=== PATIENT | female | born 1980 | race Caucasian/White ===

== ENCOUNTER → 2019-08-18 | Outpatient (CLI) | payer OTHER ==
[~2019-08-18] MED LIST: ALPRAZOLAM XR3 MG PO; AMBIEN5 MG PO; ARTIFICIAL TEAR15 M4 OPHTHALMIC; BENADRYL ALLERG25 MG PO; CORRECTOL5 M1 PO; CYMBALTA30 MG PO; FOLIC ACID1 MG PO; GRALISE300 MG PO; HYDROCODON-ACE1 EAC7 PO; LIDOCAINE35.44 GM TOP; MELATONIN5 M1 PO; MELATONIN5 M4 PO; MILK OF MA2400 MG/11 PO; MOBIC7.5 MG PO; MYLANTA MAXIMU355 ML PO; NEURONTIN100 MG PO; NEURONTIN600 MG PO; POTASSIUM20 PO; PREDNISONE 10 M10 M1 PO; PROMS25 WY PO; PROTONIX40 M1 PO; VOLTAREN GEL 1100 G1 TOP
[2019-08-18 13:00] LABS: CSF GLUCOSE 63 mg/dl (40-70); CSF PROTEIN 38.9 mg/dl (15-45)
[2019-08-18 13:11] VITALS: BP 135/96
[2019-08-18 13:20] VITALS: BP 126/92
[2019-08-18 13:30] LABS: CSF CLARITY CLEAR; CSF COLOR COLORLESS; CSF RBC 0 /mm3; CSF WBC 0 /mm3 (0-10); VOLUME 12.5 ml
--- NOTE | 2019-08-19 16:06 | PATH ---
[address] [address] PATHOLOGY RPT PROCEDURE Name: DAVID PARIS Room: [facility] [employer]#: [id number] Admission: 08/18/19 Date of : 80 Discharge: Report #: [id number] Path Case #: [id number] Note LCA Accession Number: [id number] TESTS RESULT FLAG UNITS REF RANGE LAB Clinician Provided Cytology Information No. of containers..01 Other (Miscellaneous) Source: CSF DIAGNOSIS: 02 CSF NEGATIVE FOR MALIGNANT CELLS. PAUCICELLULAR SPECIMEN WITH FEW LYMPHOCYTES AND RARE SUGGESTION OF CHOROIDAL/EPENDYMAL CELL. Signed out by: 02 Primitivo Eli MD, Pathologist NPI- [id number] Performed by: 01 Elena Trejo, Sterile Processing Manager ([facility]) Gross description: 01 2.5 ML, CLEAR, COLORLESS /LCS 11/16/1840 0000 Local FLAG LEGEND: L-Low Normal,H-High Normal,LL-Alert Low,HH-Alert High <-Panic Low,>-Panic High,A-Abnormal,AA-Critical Abnormal Performed at: [address] [place] [address] Audi Yeh MD, [address] [place] [address] [place] [address] Primitivo Eli MD, Specimen Comment: A courtesy copy of this report has been sent to Specimen Comment: [phone]. Specimen Comment: Report sent to Performed at: [address], [place], [place] [id number] MD Audi Yeh MD Phone: [phone]
== END | disposition home or self-care (01) ==
LOC: M.LAB 08-12 11:07 → M.RAD 09:38 → M.LAB 10:00
PROVIDERS: Psychiatry & Neurology Neurology
DX: I49.5 Sick sinus syndrome (principal)

== ENCOUNTER 2019-09-03 12:43 | Inpatient (IN) | payer OTHER ==
[~2019-09-03] VITALS: Ht 167.6 cm; Wt 65.8 kg
--- NOTE | ~2019-09-03 | PROC ---
[address] [address] PROCEDURE REPORT Name: DAVID PARIS Room: [address] IN ..#: [id number] Admission: 09/03/19 Attend Phys: Tenzin Khan MD Discharge: 09/14/19 Date of : 80 Report #: [id number] THIS REPORT FOR: //name// For GI report, please see the Provation report in Perceptive 7 content. By: 0644Medical Records Staff AMOR /VIDAL
--- NOTE | ~2019-09-03 | CON ---
[address] [address] CONSULTATION Name: SHAMAR PARISCHUY Bob Room: [address] IN .R.#: [id number] Admission: 09/03/19 Attend Phys: Tenzin Khan MD Discharge: Date of : 80 Report #: [id number] THIS REPORT FOR: //name// CC: DEL physician/PCP Tenzin Khan DATE OF SERVICE: 09/04/2019 REASON FOR CONSULTATION: Anemia. HISTORY OF PRESENT ILLNESS: This is a 39-year-old female who was diagnosed with Guillain-Sardis 2 weeks ago. The patient still does not know what the cause of her Guillain-Sardis was. She has received 5 courses of IVIG so far. She presents with weakness and anemia. She has hemoglobin of 7.3 on presentation, which dropped to 6 after hydration. The patient denies any hematemesis, melena, hematochezia, nausea, vomiting, dysphagia, odynophagia or abdominal pain. 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 ALLERGIES AND MEDICATIONS: Please refer to MAR. SOCIAL HISTORY: The patient denies tobaccoism, may have few alcoholic beverage per day. FAMILY HISTORY: Noncontributory. PHYSICAL EXAMINATION: VITAL SIGNS: Reveals blood pressure of 139/93, pulse of 109, temperature is 98 and respiration is 19. LUNGS: Clear to auscultation bilaterally. CARDIOVASCULAR: Regular rate, but tachycardia. ABDOMEN: Soft, nontender, nondistended. Bowel sounds are positive. LABORATORY DATA: Labs reveal sodium of 135, potassium 2.6, BUN is 9, creatinine 0.6, glucose 119, AST is 36, ALT of 21 with alkaline phosphatase of 6.5, magnesium is 1.5, total bilirubin is 2 with direct being 0.6. Lipase is 603. Serum iron is 272 with saturation of 101. Ferritin is 1545. WBC is 15.1 with hemoglobin of 8 and platelet of 352. Viral hepatitis serology was obtained, which was negative. IMAGING: A CT of abdomen and pelvis was obtained, which showed evidence of femoral head flattening or volume loss, which may be secondary to avascular necrosis. There is also wall thickening in the distal stomach near the pylorus with some adjacent mild stranding suggestive of [place] [address] CONSULTATION Name: DAVID PARIS Paulino Room: [address] IN [facility]#: [id number] Admission: 09/03/19 Attend Phys: Tenzin Khan MD Discharge: Date of : 80 Report #: [id number] ASSESSMENT AND PLAN: The patient's anemia, most probably is due to autoimmune hemolytic anemia as the patient with Guillain-Sardis in setting of IVIG treatment may develop hemolytic autoimmune anemia. We will consult Hematology to further investigate this. CT suggestive of some evidence of gastritis in the distal stomach. I will put her on double dose of PPI. Once she is more stable, we will consider performing upper scope. By: 1027 [id number] Nolasco MD /nt
[2019-09-03 12:45] VITALS: BP 134/76
[2019-09-03] MEDS ORDERED: NEURONTIN100 MG PO (12:54)
[2019-09-03] MEDS ORDERED: MOBIC7.5 MG PO (12:54)
[2019-09-03] MEDS ORDERED: BENADRYL ALLERG25 MG PO (12:55)
[2019-09-03 13:20] LABS: HEMATOCRIT 21.1 % (37.0-47.0); HEMOGLOBIN 7.3 gm/dL (12.0-15.0); MCH 35.5 pg (26.0-34.0); MCHC 34.8 g/dL (28.0-37.0); MCV 101.9 fL (80.0-100.0); MPV 7.3 fl. (7.2-11.1); NUCLEATED RBCS 2 /100WBC; PLATELET COUNT* 473 thou/uL (150-400); RBC 2.07 mil/uL (4.20-5.00); RDW-CV 16.5 % (10.5-14.5); WBC 22.3 thou/uL (4.0-11.0)
[2019-09-03 13:37] LABS: CALCIUM 8.7 mg/dL (8.5-10.1); CREATININE 0.8 mg/dL (0.6-1.3)
[2019-09-03 13:38] LABS: MAGNESIUM 1.8 mg/dL (1.8-2.4)
[2019-09-03 13:39] LABS: POTASSIUM 2.3 mmol/L (3.5-5.1)
[2019-09-03 13:42] LABS: ALBUMIN 2.3 g/dL (3.4-5.0); TOTAL BILIRUBIN 2.3 mg/dL (<0.1-1.0); TOTAL PROTEIN 9.4 g/dL (6.4-8.2)
[2019-09-03 13:51] LABS: ABSOLUTE LYMPHOCYTES 2.2 thou/uL (0.8-5.3); ABSOLUTE MONOCYTES 1.3 thou/uL (0.0-1.2); ABSOLUTE NEUTROPHILS 18.7 thou/uL (1.6-8.1); PLATELET ESTIMATE INCREASED
[2019-09-03 13:52] LABS: POLYCHROMASIA 2+
[2019-09-03 13:53] LABS: ANISOCYTOSIS 2+; MACROCYTES 1+; MICROCYTES 1+
[2019-09-03 14:04] LABS: BE 8.5 mmol/L (-2 to +3); PCO2 37.3 mmHg (35.0-45.0); PO2 72.1 mmHg (75.0-100.0); pH 7.548 (7.340-7.450)
[2019-09-03 14:17] LABS: PROTIME 10.3 Seconds (9.20-11.50)
[2019-09-03 14:46] LABS: URINE BILIRUBIN NEGATIVE (Negative); URINE BLOOD TRACE (Negative); URINE COLOR YELLOW; URINE GLUCOSE-RANDOM NEGATIVE (Negative); URINE KETONES NEGATIVE (Negative); URINE LEUKOCYTES-REFLEX NEGATIVE (Negative); URINE NITRITE-REFLEX POSITIVE (Negative); URINE PROTEIN NEGATIVE (Negative); URINE SPECIFIC GRAVITY <= 1.005 (1.005-1.030)
[2019-09-03 14:47] LABS: URINE CLARITY HAZY
[2019-09-03 14:54] LABS: AMP/METHAMP Negative (Negative); BARBITURATES Negative (Negative); BENZODIAZEPINES Negative (Negative); COCAINE Negative (Negative); METHADONE Negative (Negative); OPIATES Negative (Negative); PCP Negative (Negative); THC Negative (Negative)
[2019-09-03 14:55] LABS: SQUAMOUS 0-3 Few /LPF (0-3)
--- NOTE | 2019-09-03 14:55 | NUR ---
IV INSERTED IN LEFT AC, IV FLUIDS STARTED. PT DEVELOPED RAISED AREA SIZE OF GOFTBALL DIRECTLY ABOVE IV SITE. IV DC'D, COBAN APPLIED WITH WARM COMPRESSES. YARY CHACON TO ATTEMPT IV INSERTION.
[2019-09-03 14:56] LABS: BACTERIA-REFLEX >30 Many /HPF (None Seen); CASTS None Seen /LPF (None Seen); CRYSTALS None Seen /LPF (None Seen); URINE RBC 0-2 Rare /HPF (0-2); URINE WBC-REFLEX 6-15 Few /HPF (0-5)
--- NOTE | 2019-09-03 15:38 | EKG ---
[place] [address] ELECTROCARDIOGRAM REPORT Name: RAINADAVID Room: [facility]#: [id number] Admission: 09/03/19 Attend Phys: Discharge: Date of : 80 Report #: [id number] THIS REPORT FOR: //name// [facility] ED Test Date: 2019-09-03 Test Time: 12:54:41 Pat Name: DAVID PARIS Department: Room: Gender: F Director Search Marketing Strategies: : 1980 Requested By: Yulisa Pruett Order Number: [id number] MD: Dustin Calvillo Measurements Intervals [place] Rate: 130 P: 64 [place]: 130 QRS: 54 QRSD: 78 T: -58 QT: 323 QTc: 475 Interpretive Statements Sinus tachycardia Borderline T abnormalities, inferior leads No previous ECG available for comparison Electronically Signed On 09-03-2019 15:37:56 CDT by Dustin Calvillo [email or web address] <ELECTRONICALLY SIGNED> By: Imani Calvillo MD, [facility] 09/03/19 1537 [id number] Imani Calvillo MD, FACC /EPI
--- NOTE | 2019-09-03 17:03 | NUR ---
DR. CHICAS IN ROOM TALKING TO PT ABOUT RESULTS AND NEED FOR ADMISSION. PT AGREEABLE AND STATES UNDERSTANDING.
--- NOTE | 2019-09-03 18:58 | NUR ---
REPORT GIVEN TO YARY MURPHY. YARY MURPHY TO ASSUME PT CARE AT THIS TIME.
[2019-09-03 20:45] VITALS: BP 132/86
--- NOTE | 2019-09-03 21:24 | NUR ---
CALL RECEIVED FROM DR DIAZ REGARDING CONSULT, LAB RESULTS AND PLAN OF CARE CONVEYED. DR DIAZ STATES TO FOLLOW ER ORDER OF H/H Q4HR X4 POST TRANSFUSION AND HE WILL SEE PT IN AM TO DETERMINE IF EGD IS APPROPRIATE IN LIGHT OF PTS GUILLIAN BARRE SYNDROME.
[2019-09-03 22:13] LABS: DIRECT BILIRUBIN 0.6 mg/dL (<0.1-0.3); TOTAL BILIRUBIN 1.9 mg/dL (<0.1-1.0)
[2019-09-03 22:40] VITALS: BP 135/90
[2019-09-03 23:00] VITALS: BP 136/83
[2019-09-03 23:20] VITALS: BP 136/89
[2019-09-03 23:49] LABS: URINE POTASSIUM-RANDOM 9.9 mmol/L
[2019-09-04] VITALS (17 sets, daily range): BP systolic 104–147; BP diastolic 63–95
[2019-09-04 04:58] LABS: HEMATOCRIT 23.1 % (37.0-47.0); MCHC 34.7 g/dL (28.0-37.0); MPV 7.3 fl. (7.2-11.1); RBC 2.43 mil/uL (4.20-5.00); RDW-CV 17.3 % (10.5-14.5); WBC 15.1 thou/uL (4.0-11.0)
--- NOTE | 2019-09-04 05:16 | NUR ---
RECIEVED FROM ER AT 2030H, HOOKED TO BLOCK TRIMMER AND WITH TACHYCARDIA NOTED.NO HEMATEMESIS NOR BLOODY STOOL THE WHOLE NIGHT.PRN PAIN MED GIVEN.PT REQUESTED FOR CONFIDENTIAL CHART AND AND RESULTS,PROCEDURE,DIAGNOSIS ETC. ONLY BE RELAYED TO HER.ATTENDING PHYSICIAN AWARE.CONTINUE MONITORING AND TOWARD GOALS.
[2019-09-04 05:18] LABS: CALCIUM 7.3 mg/dL (8.5-10.1); CREATININE 0.6 mg/dL (0.6-1.3); MAGNESIUM 1.5 mg/dL (1.8-2.4); TOTAL PROTEIN 7.9 g/dL (6.4-8.2)
[2019-09-04 05:23] LABS: POTASSIUM 2.6 mmol/L (3.5-5.1)
[2019-09-04 06:06] LABS: HEPATITIS B SURFACE AG Negative (Negative)
--- NOTE | 2019-09-04 15:18 | NUR ---
PT C/O OF LOWER LEG PRESSURE. PT STATES LEGS "FEEL LIKE SAND BAGS" AND SHARP PAIN IN TOES WITH SENSATION OF "LUISA BEING PULLED OUT". PT RATED PAIN 8/10. PT REPORTED FENTANLY IS NOT GIVING RELIEF. PT STATES PRIOR TO THIS ADMISSION SHE HAS HAD FENTANLY AND HAD RELEIF WITH THIS MEDICAITON. NOTIFED AND ASKED FOR ORAL MEDICATION. RECEIVED ORDER FOR HYDROCODONE. UPON DISCUSSING PAIN MANAGMENT AND NEW ORDER, PT STATES HYDROCODONE MAKE HER HAVE "VIOLENT" EMESIS. PT REPORTED PERCOCET DOES NOT "UPSET HER STOMACH". NOTIFIED AND ORDERS DC'D FOR HYDROCODONE AND START PRN PERCOCET. PRIOR TO 50MCG OF FENTNAYL PT RATES PAIN 8/10. AFTER ADMNINSTRATION OF MED, PT RATED PAIN 7/10. PRIOR TO PO PERCOCET PAIN RATED 8/10. AT REASSESSMENT PAIN RATED 8/1O. PT REPORTS TOLERABLE PAIN LEVEL 4/10. REGULAR DIET ORDERED BY GI AND OKAYED BY INTERNAL MEDICINE. PT HAS POOR APPETITE. NO NAUSEA OR EMESIS. PT ATE 15% OF LUNCH. POTASSIUM 2.6 AND BEING REPLACED PER PROTOCOL.
[2019-09-05] VITALS (13 sets, daily range): BP systolic 107–130; BP diastolic 59–83
--- NOTE | 2019-09-05 01:04 | NUR ---
LAB NOTIFIED THIS RN AT APPROX 2130 THAT THE PATIENT WAS "TIMOTHY +". BLOOD WILL NEED TO BE SENT OUT TO BE ANALYZED TO DETERMINE THE CAUSE OF THE POSITIVE READ. THERE WILL BE A PATHOLOGIST TO RUN TESTING AT THE CENTER THAT THIS [facility] USES AT 1500 ON 02/03/19. IF BLOOD IS URGENTLY NEEDED, IT WILL BE A $300 CHARGE FOR THE HOSPITAL TO CALL THIS SPECIALIST IN.
--- NOTE | 2019-09-05 05:11 | NUR ---
ASSUMED PATIENT CARE AT 1900. PATIENT ALERT AND ORIENTED TIMES FOUR. MINOR COMPLAINTS OF PAIN NOTED, CONTROLLED WITH ORAL PAIN MEDICATION. IV PATENT. VSS. REFUSES TO TRY TO GO TO THE BSC. SEE NOTE ABOUT BLOOD TESTING. SEE EMAR FOR MEDICATION ADMINISTRATION. SHUTTLE INSPECTOR COMPLETED DOCUMENTED.
[2019-09-05 07:17] LABS: MAGNESIUM 1.5 mg/dL (1.8-2.4); POTASSIUM 3.2 mmol/L (3.5-5.1)
[2019-09-05 14:19] LABS: HEMATOCRIT 22.3 % (37.0-47.0); HEMOGLOBIN 7.7 gm/dL (12.0-15.0)
--- NOTE | 2019-09-05 15:48 | CON ---
[address] [address] CONSULTATION Name: RAINADAVID B Room: [address] IN M.R.#: [id number] Admission: 09/03/19 Attend Phys: Tenzin Khan MD Discharge: Date of : 80 Report #: [id number] THIS REPORT FOR: //name// CC: [facility] physician/PCP Tenzin Khan DATE OF SERVICE: 09/04/2019 NEW PATIENT CONSULTATIVE SUMMARY PRIMARY CARE PHYSICIAN: Unknown. REASON FOR CONSULTATION: Possible autoimmune hemolytic anemia. 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 She was seen by Neurology and was treated with IVIG for 5 days. She has not had any significant improvement of her symptoms and started having progressive fatigue and tiredness as well and presented to the hospital 2 days ago. Blood work upon admission showed hemoglobin decreased to 7.3 with otherwise normal platelet count of 352 and elevated WBC count of 22.3, which decreased down to 15.1 today. The patient did have imaging in the form of CT scan of the chest, abdomen and pelvis. CT scan of the chest showed no evidence of pulmonary thromboembolic disease or aortic dissection with no acute cardiopulmonary abnormality. The patient did have fatty liver with hepatomegaly suspected. CT abdomen showed wall thickening of the distal stomach near the pylorus and flattening or volume loss of right femoral head suggesting avascular necrosis. The patient was seen by Gastroenterology by Dr. Nolasco. The patient was found to have total bilirubin level elevated at 2.3 with low level of conjugated bilirubin indicating absence of any obstructive process. AST and ALT were otherwise not elevated and alkaline phosphatase is also normal at 65. The patient had iron profile, which showed iron level elevated at 272 with iron saturation of 100. Ferritin was markedly elevated at 1545. LDH was also found to be significantly elevated at 617. Due to these findings, Hematology consultation was obtained. The patient did have hepatitis C antibody negative at 0.3. She did require 1 unit of PRBCs after hemoglobin fell to 6.0. Subsequent hemoglobin was found to be 8 g/dL. The patient does give history of being on meloxicam, gabapentin and amitriptyline for her neuropathy. She does not give any history of any skin changes including any purpura, ecchymosis or any cyanosis. She does not complain of any headaches, dizziness, nausea, vomiting, constipation, diarrhea, chest pain or palpitations. No recent antibiotic or other drug use except mentioned above recently. PAST MEDICAL HISTORY: [place] [address] CONSULTATION Name: DAVID PARIS Room: [address] IN M.R.#: [id number] Admission: 09/03/19 Attend Phys: Tenzin Khan MD Discharge: Date of : 80 Report #: [id number] 1. Anemia, possibly autoimmune. 2. 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 3. Bilateral avascular necrosis of hips. 4. Gastritis. 5. Weakness. PAST SURGICAL HISTORY: None significant. PERSONAL HISTORY: Denies any history of tobacco use and off and on alcohol use only. No illicit drug use history. FAMILY HISTORY: No significant family history of cancers or other hematologic disorders. ALLERGIES: 1. RIFAMPIN. 2. TRAMADOL. CURRENT MEDICATIONS: 1. Protonix 40 mg p.o. b.i.d. 2. Percocet 5/325 mg 1 tablet every 3 hours as needed. 3. Zosyn 3.375 grams q. 8 hours. 4. Promethazine 12.5 mg p.o. q. 4 hours as needed. 5. Potassium as directed. 6. Zofran 4 mg IV as needed. 7. Melatonin 10 mg p.o. at bedtime as needed. 8. Magnesium oxide 400 mg p.o. q.i.d. 9. Gabapentin 300 mg p.o. t.i.d. 10. Diphenhydramine 25 mg p.o. q. 6 hours as needed. 11. Mylanta p.o. q. 4 hours as needed. 12. Fentanyl 50 mcg IV push q. 4 hours as needed. REVIEW OF SYSTEMS: A 13-point review of systems were obtained, which were negative for any findings except for those discussed in HPI. PHYSICAL EXAMINATION: VITAL SIGNS: Temperature today was 36.7 degrees centigrade, pulse was 121 beats per minute, respiratory rate was 14 breaths per minute, blood pressure 108/63 mmHg with pulse ox 94% on room air. GENERAL: Awake, alert, oriented x 3, no apparent distress. HEENT: EOMI/PERRL. LYMPHATICS: No lymphadenopathy in the neck or supraclavicular areas. CHEST: Clear bilaterally with no added sounds. CARDIOVASCULAR: Regular rate and rhythm without any murmurs. ABDOMEN: Soft, [place] [address] CONSULTATION Name: DAVID PARIS Room: [address]#: [id number] Admission: 09/03/19 Attend Phys: Tenzin Khan MD Discharge: Date of : 80 Report #: [id number] MUSCULOSKELETAL: No significant arthropathy, moving all extremities symmetrically. NEUROLOGIC: The patient does complain of weakness in the legs and numbness and tingling in the feet and hands. INTEGUMENTARY: No evidence of rash or other skin changes. 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 The patient also does have evidence of autoimmune hemolytic anemia on lab findings given the drop in hemoglobin along with elevated LDH and unconjugated bilirubin. Haptoglobin level is pending. I will add direct Courtney test along with reticulocyte count tonight as well. Her medication taken recently over the last few months are not commonly implicated with autoimmune hemolytic anemia. The patient may need treatment with steroids if she does have high reticulocyte count and positive Courtney test. I will also request peripheral smear review by pathologist. In the event that patient is planned to be treated with plasmapheresis for her neuropathy, it will also help with autoimmune hemolytic anemia if confirmed. In the meanwhile, we recommend transfusing patient to keep her hemoglobin above 7. Thank you for allowing us to participate in the care of this pleasant patient. <ELECTRONICALLY SIGNED> By: Jonny Nickerson MD 09/05/19 1548 1720 [id number] Elva Nickerson MD /nt
[2019-09-05 18:22] LABS: MAGNESIUM 1.6 mg/dL (1.8-2.4); POTASSIUM 4.1 mmol/L (3.5-5.1)
--- NOTE | 2019-09-05 19:18 | NUR ---
PT TRANSFERRED FROM ICU AT 1800 REPORT RECEIVED FROM NURSE. PT IS AOX4. VS TAKEN. SEE CHART. SINUS TACHY HEART RATE 130S 140S EVEN WHEN PT IS LYING IN BED. DR NOTIFIED. WILL CARDIAC SCRIPT IN CHART. IV FLUID INFUSING ORDERED. PAIN MEDICINE GIVEN. PT ATE DINER. CALL LIGHT AT REACH
--- NOTE | 2019-09-05 19:35 | NUR ---
PT A&O X4. ST ON THE MONITOR. O2 SATS >92% IN RA. VOIDING PER BED CASTRO. TOLERATING DIET. ELECTROLYTE REPLACED PER PROTOCOL. HB MONITORED. PERCUCET GIVEN ONCE FOR PAIN. REPORT GIVEN TO RANDY RIOS.
[2019-09-05 21:05] LABS: IgA 211 mg/dL (87-352); IgG 3315 mg/dL (700-1600); IgM 125 mg/dL (26-217)
[2019-09-05 22:04] LABS: HEMATOCRIT 21.8 % (37.0-47.0); HEMOGLOBIN 7.5 gm/dL (12.0-15.0)
[2019-09-05 22:07] LABS: HEMOGLOBIN 7.4 g/dL (11.1-15.9)
[2019-09-05 22:07] LABS: GLYCOHEMOGLOBIN (HGB A1C) 4.8 % (4.8-5.6)
[2019-09-06] VITALS: BP 139/62; BP 139/88
[2019-09-06 04:00] VITALS: BP 139/85
--- NOTE | 2019-09-06 04:19 | NUR ---
PATIENT HAS SLEPT WELL THROUGHOUT MOST OF THE NIGHT. VSS ON RA. MEDICATIONS GIVEN ORDERED AND CHARTED. PATIENT REQUESTED TO USE BEDPAN D/T HER BEING SO WEAK AT THIS TIME. PATIENT REMAINS SINUS TACH ON TELE MONITOR. NEW IV IN RIGHT FOREARM-1/2 NS @ 80ML/HR. IV IN RIGHT AC-SL. PATIENT INSTRUCTED TO USE CALL LIGHT WHEN NEEDING ASSISTANCE. HOURLY ROUNDS MADE. WILL CONTINUE WITH PLAN OF CARE AND NURSING TO MONITOR.
[2019-09-06 05:07] LABS: ABSOLUTE BASOPHILS 0.1 thou/uL (0.0-0.2); ABSOLUTE EOSINOPHILS 0.2 thou/uL (0.0-0.7); ABSOLUTE LYMPHOCYTES 2.3 thou/uL (0.8-5.3); ABSOLUTE MONOCYTES 1.5 thou/uL (0.0-1.2); ABSOLUTE NEUTROPHILS 10.5 thou/uL (1.6-8.1); BASOPHILS 0.8 %; EOSINOPHILS 1.5 %; HEMATOCRIT 21.5 % (37.0-47.0); HEMOGLOBIN 7.2 gm/dL (12.0-15.0); MCHC 33.5 g/dL (28.0-37.0); MCV 95.4 fL (80.0-100.0); MONOCYTES 10.3 %; MPV 7.1 fl. (7.2-11.1); NUCLEATED RBCS 3 /100WBC; PLATELET COUNT* 355 thou/uL (150-400); POLYS 71.4 %; RBC 2.26 mil/uL (4.20-5.00); RDW-CV 18.3 % (10.5-14.5); WBC 14.6 thou/uL (4.0-11.0)
[2019-09-06 05:23] LABS: ALBUMIN 2.2 g/dL (3.4-5.0); CALCIUM 8.4 mg/dL (8.5-10.1); CREATININE 0.5 mg/dL (0.6-1.3); MAGNESIUM 1.6 mg/dL (1.8-2.4); TOTAL BILIRUBIN 0.9 mg/dL (<0.1-1.0); TOTAL PROTEIN 7.6 g/dL (6.4-8.2)
[2019-09-06 08:00] VITALS: BP 136/93
--- NOTE | 2019-09-06 11:27 | NUR ---
ATTEMPTED TO MEET WITH PT, WORKING WITH THERAPY
[2019-09-06 12:00] VITALS: BP 133/85
[2019-09-06 16:00] VITALS: BP 137/88
--- NOTE | 2019-09-06 19:10 | NUR ---
ASSUMED PT CARE REPORT RECEIVED FROM NURSE.PT IS AOX4. ON RA. IV FLUID INFUSING. COMPLAINS OF PAIN. PERCOCET GIVEN. PT WORKED WITH OT AND PHYSICAL THERAPIST. MAG REPLACEMENT. MAG AND CBS ORDERED FOR TOMORROW. ORDER TO INCREASED GABAPENTIN DOSE STARTING TONIGHT. SEE EMAR AND ORDER HX.
[2019-09-06 20:29] VITALS: BP 135/87
[2019-09-07] VITALS: BP 142/84
[2019-09-07 04:00] VITALS: BP 136/93
[2019-09-07 05:35] LABS: HEMATOCRIT 22.6 % (37.0-47.0); HEMOGLOBIN 7.5 gm/dL (12.0-15.0); MCH 31.7 pg (26.0-34.0); MCHC 33.1 g/dL (28.0-37.0); MCV 95.7 fL (80.0-100.0); MPV 7.3 fl. (7.2-11.1); NUCLEATED RBCS 4 /100WBC; PLATELET COUNT* 429 thou/uL (150-400); RBC 2.36 mil/uL (4.20-5.00); RDW-CV 19.7 % (10.5-14.5); WBC 20.8 thou/uL (4.0-11.0)
[2019-09-07 06:10] LABS: ALBUMIN 2.4 g/dL (3.4-5.0); CALCIUM 8.8 mg/dL (8.5-10.1); CREATININE 0.6 mg/dL (0.6-1.3); MAGNESIUM 1.9 mg/dL (1.8-2.4); PHOSPHORUS* 2.8 mg/dL (2.5-4.9); TOTAL BILIRUBIN 0.9 mg/dL (<0.1-1.0)
[2019-09-07 06:24] LABS: ABSOLUTE LYMPHOCYTES 2.1 thou/uL (0.8-5.3); ABSOLUTE NEUTROPHILS 17.7 thou/uL (1.6-8.1); ANISOCYTOSIS 1+; ATYPICAL LYMPHS 1 %; METAMYELOCYTES 1 %; MYELOCYTES 1 %; PLATELET ESTIMATE ADEQUATE; POLYCHROMASIA 2+
[2019-09-07 06:47] VITALS: BP 146/102
--- NOTE | 2019-09-07 07:34 | NUR ---
ASSUMED CARE OF PT 09/06/19 AT APPROX 1930, PT REMAINED A&OX4 THROUGHOUT SHIFT, PT SINUS TACH, PAIN MEDS REQUESTED AND ADMINISTERED ORDERED, ASSESSMENTS AND HOURLY ROUNDINGS COMPLETED, FALL PRECAUTIONS IN PLACE, REPORT GIVEN TO DAY SHIFT 09/07/19 APPROX 0720.
[2019-09-07 07:45] VITALS: BP 144/97
[2019-09-07 10:45] VITALS: BP 122/87
--- NOTE | 2019-09-07 13:16 | NUR ---
MET WITH PT TO DISCUSS HOME SITUATION/DC PLANNING. PT LIVES WITH S/O PILLO BUT STATES HE WORKS 5-6 DAYS A WEEK. HER PARENTS LIVE CLOSEBY AND CAN CHECK ON HER BUT NOT STAY WITH HER. PT JUST FINISHED 5 DAYS OF IVIG INFUSION AT HOME BY [facility] . SHE STATED SHE BEGAN HAVING INCREASED DIFFICULTY GETTING AROUND IN HER HOME UNTIL SHE COULD NO LONGER GET FROM HER BED TO BATHROOM. STILL C/O OF SEVERE WEAKNESS AND INABILITY TO CARE FOR HERSELF. DR SIN IN AND ORDERED REHAB CONSULT. WILL FOLLOW
[2019-09-07 20:00] VITALS: BP 135/86
[2019-09-08] VITALS: BP 126/83
[2019-09-08 04:00] VITALS: BP 122/82
--- NOTE | 2019-09-08 05:14 | NUR ---
A&O X4, VSS, MAINTAINING O2 SATS ON RA. PT IS REFUSING TO AMBULATE THROUGH OUT SHIFT, REQUESTING A BEDPAN D/T WEAKNESS. EDUCATED AND ENCOURAGED PT TO AMBULATE TO COMMODE IF NOT TO THE BATHROOM. PT HAD C/O PAIN AT START OF SHIFT TREATED WITH PRN MEDICATION. PT CURRENTLY ASLEEP IN BED WITH CALL LIGHT WITHIN REACH.
[2019-09-08 05:18] LABS: ABSOLUTE BASOPHILS 0.1 thou/uL (0.0-0.2); ABSOLUTE LYMPHOCYTES 1.6 thou/uL (0.8-5.3); ABSOLUTE MONOCYTES 2.2 thou/uL (0.0-1.2); ABSOLUTE NEUTROPHILS 12.4 thou/uL (1.6-8.1); BASOPHILS 0.3 %; EOSINOPHILS 0.1 %; HEMATOCRIT 23.4 % (37.0-47.0); HEMOGLOBIN 7.7 gm/dL (12.0-15.0); LYMPHOCYTES 10.2 %; MCHC 32.8 g/dL (28.0-37.0); MCV 97.5 fL (80.0-100.0); MONOCYTES 13.3 %; MPV 7.5 fl. (7.2-11.1); NUCLEATED RBCS 2 /100WBC; PLATELET COUNT* 454 thou/uL (150-400); POLYS 76.1 %; RDW-CV 21.4 % (10.5-14.5); WBC 16.2 thou/uL (4.0-11.0)
[2019-09-08 07:30] VITALS: BP 141/93
[2019-09-08 10:10] LABS: GLOBULIN TOTAL 5.7 g/dL (2.2-3.9); M-SPIKE Not Observed g/dL (Not Observed)
[2019-09-08 11:10] VITALS: BP 129/80
[2019-09-08 16:00] VITALS: BP 112/77
--- NOTE | 2019-09-08 18:33 | NUR ---
PT HAS C/O NEUROPATHY THIS SHIFT. PT UNDERSTANDS SHE NEEDS TO REQUEST PAIN MEDICATIONS AND THEY WILL NOT BE BROUGHT UNLESS SHE REPORTS PAIN, NEUROPATHY PAIN MEDICATIONS ARE SCHEDULED. PT IS UP SBA, IV IS SL AT THIS TIME. PT TOLERATING RA AND DIET THIS SHIFT, ST ON THE MONITOR UP TO THE 160'S WITH AMBULATION-DR THOMPSON AWARE AND IS OKAY WITH THIS SHE IS DECONDITIONED. PT HAD A GRAM POSITIVE RODS URINE CULTURE NOTED. DR KAISER WAS UPDATED TO LAB CALL STATING THAT HER LP WAS NOT SENT TO THE LAB UNTIL 09/05 THEY STATED THEY DID NOT HAVE AN ORDER TO SEND AND THE LAB JUST RECIEVED THE LAB TODAY AND IT IS UP TO A 6 DAY TURN AROUND FOR RESULTS. HOURLY ROUNDING MAINTAINED, WILL CONTINUE TO MONITOR AND ASSESS
[2019-09-08 18:35] LABS: ABSOLUTE LYMPHOCYTES 0.6 thou/uL (0.8-5.3); ABSOLUTE MONOCYTES 0.8 thou/uL (0.0-1.2); ABSOLUTE NEUTROPHILS 13.3 thou/uL (1.6-8.1); EOSINOPHILS 0.1 %; HEMOGLOBIN 8.2 gm/dL (12.0-15.0); MCH 33.4 pg (26.0-34.0); MCHC 34.1 g/dL (28.0-37.0); MONOCYTES 5.3 %; MPV 7.6 fl. (7.2-11.1); NUCLEATED RBCS 2 /100WBC; PLATELET COUNT* 471 thou/uL (150-400); POLYS 90.6 %; RBC 2.45 mil/uL (4.20-5.00); WBC 14.7 thou/uL (4.0-11.0)
[2019-09-08 20:00] VITALS: BP 125/80
[2019-09-09] VITALS: BP 127/87
[2019-09-09 04:00] VITALS: BP 116/77
[2019-09-09 05:23] LABS: HEMATOCRIT 22.1 % (37.0-47.0); HEMOGLOBIN 7.5 gm/dL (12.0-15.0); MCHC 33.8 g/dL (28.0-37.0); MCV 97.4 fL (80.0-100.0); MPV 7.5 fl. (7.2-11.1); RBC 2.27 mil/uL (4.20-5.00); RDW-CV 21.4 % (10.5-14.5); WBC 12.1 thou/uL (4.0-11.0)
--- NOTE | 2019-09-09 05:27 | NUR ---
PT A&O X4, HAS HAS MUCH IMPROVEMENT WITH THIS SHIFT WITH TRANSFERING TO COMMODE. CONTIUNE TO ENCOURAGE AMBULATION. C/O PAIN NOTED AT START OF SHIFT, RELIEVED BY LIDOCAINE CREAM AND PRN MEDS. PT USING CALL LIGHT DIRECTED. PT CURRENTLY ASLEEP IN BED WITH CALL LIGHT WITH IN REACH.
[2019-09-09 05:35] LABS: CALCIUM 8.9 mg/dL (8.5-10.1); CREATININE 0.6 mg/dL (0.6-1.3); MAGNESIUM 2.2 mg/dL (1.8-2.4); POTASSIUM 3.2 mmol/L (3.5-5.1)
[2019-09-09 08:00] VITALS: BP 118/98
--- NOTE | 2019-09-09 12:55 | NUR ---
assumed pt care report received from nurse. pt is aox4, tracing sinus tachycardia on quality assurance monitor final. vss. complains of sensivity , numbness and pain in bilateral feet. lidocaine cream applied. rocephin given. pt kept npo for EGD, npo signed hanged. pt apparently had a granula bar and could not have EGD done at 1200. pt will have EGD done at 1400. no po medicine given for npo status. call light at reach. will continue to monitor pt
--- NOTE | 2019-09-09 13:30 | NUR ---
PT HAD BEEN CHANGED TO MEDSURG STATUS PER DR VIDES
[2019-09-09 13:35] VITALS: BP 136/89
--- NOTE | 2019-09-09 14:26 | NUR ---
MET WITH PT AND DISCUSSED WITH DR THOMPSON AND [facility]. PLAN IS FOR DC TOMORROW TO INPT REHAB IF ABLE TO OBTAIN INSURANCE AUTH. IS PENDING. DISCUSSED DC OPTIONS WITH PT AND HER 1ST CHOICE IS INPT REHAB. WILL FOLLOW
[2019-09-09 15:07] LABS: ANTI-RNP 0.5 AI (0.0-0.9)
[2019-09-09 20:00] VITALS: BP 116/74
[2019-09-10] VITALS: BP 137/87
[2019-09-10 04:44] LABS: HEMATOCRIT 26.1 % (37.0-47.0); HEMOGLOBIN 8.4 gm/dL (12.0-15.0); MCH 31.5 pg (26.0-34.0); MCHC 32.3 g/dL (28.0-37.0); MCV 97.7 fL (80.0-100.0); MPV 7.7 fl. (7.2-11.1); RBC 2.67 mil/uL (4.20-5.00); RDW-CV 21.4 % (10.5-14.5); WBC 12.6 thou/uL (4.0-11.0)
[2019-09-10 05:17] LABS: CALCIUM 9.1 mg/dL (8.5-10.1); CREATININE 0.6 mg/dL (0.6-1.3); MAGNESIUM 2.3 mg/dL (1.8-2.4)
[2019-09-10 05:18] LABS: POTASSIUM 5.2 mmol/L (3.5-5.1)
--- NOTE | 2019-09-10 05:35 | NUR ---
PT PROGRESSING TOWARDS GOALS, UP TO COMMODE AND BATHROOM THORUGHOUT SHIFT. NO LONGER USING BED CASTRO. PAIN LEVEL HAS SHOWN IMPROVEMENT WITH LESS PRN MEDICATION REQUIRED. CURRENTLY ASLEEP IN BED WITH CALL LIGHT WITHIN REACH. ALL NEEDS MET AT THIS TIME.
[2019-09-10 08:00] VITALS: BP 131/89
[2019-09-10] MEDS ORDERED: LIDOCAINE35.44 GM TOP (09:36)
[2019-09-10] MEDS ORDERED: VOLTAREN GEL 1100 G1 TOP (09:36)
[2019-09-10] MEDS ORDERED: FOLIC ACID1 MG PO (09:36)
[2019-09-10] MEDS ORDERED: PROTONIX40 M1 PO (09:36)
[2019-09-10] MEDS ORDERED: NEURONTIN600 MG PO (09:36)
[2019-09-10] MEDS ORDERED: HYDROCODON-ACE1 EAC7 PO (09:36)
[2019-09-10] MEDS ORDERED: MELATONIN5 M1 PO (09:36)
[2019-09-10] MEDS ORDERED: PREDNISONE 10 M10 M1 PO (09:39)
--- NOTE | 2019-09-10 14:00 | NUR ---
CONTINUE TO FOLLOW. PER [facility] PT'S INSURANCE DENIED REHAB STAY. DISCUSSED WITH DR THOMPSON, REC: SNF. PT WAS IN GI LAB. CALL TO INSURANCE TO CHECK ON IN NETWORK FACIILTY. LIST OBTAINED. CALLS PLACED TO CHECK OPTIONS. [facility] WILL CONSIDER PT. FLORIN CAME OUT TO TALK WITH PT. PT IS OPEN TO GOING TO SNF BUT WILL HAVE UPFRONT COST. SHE WAS AGREEABLE TO THAT. ANSWERED QUESTIONS. OTHER PREFERRED FACILITIES/[facility] DECL[facility] PT. AWAIT V FINAL DECISION.
[2019-09-10 15:17] VITALS: BP 131/89
[2019-09-10 15:40] VITALS: BP 137/90
[2019-09-10 15:41] VITALS: BP 129/93; BP 135/90
--- NOTE | 2019-09-10 19:50 | NUR ---
RECEIVED REPORT FROM JC PRINGLE. ASSUMED CARE OF PT AROUND 0730. PT A&O X4 ANXIOUS AT TIMES. VSS. M/S STATUS. HR TACHY AT TIMES. PT REPORTED PAIN IN HANDS, FEET AND LEGS THIS SHIFT THAT WAS MANAGED WITH PO AND TOPICAL PAIN MEDICATION WITH PARTIAL RELIEF. PT DISAPPOINTED THIS SHIFT DUE TO BEING DENIED ENTRANCE INTO INPATIENT REHAB. CURRENT PLAN IS FOR PT TO DC TO [facility] ON FRIDAY. ADMISSION LIAAZUL STANLEY CALLED THIS RN THIS EVENING AROUND 1750 SAYING THAT INSURANCE AUTHORIZATION FROM [facility] HAD NOT YET BEEN RECEIVED AND THAT A CALL FROM [facility] WOULD MOST LIKELY NOT BE RECEIVED UNTIL FRIDAY. PT AND CM NOTFIED. PT HAPPY TO STAY THE WEEKEND. PT NEEDS TO WORK WITH THERAPIES THIS WEEKEND PER CM, INFO PASSED ON TO NIGHT NURSE JOSE JUAN. PT UNABLE TO WORK WITH THERAPIES THIS SHIFT DUE TO "BEING TOO UPSET". PT COMPLETED EGD THIS AM. MEDS PER EMAR. PT UP WITH SBA TO BEDSIDE COMMODE TO VOID, NO ISSUES. PT LEFT RESTING IN BED. CALL LIGHT IS WITHIN REACH. HOURLY ROUNDING PERFORMED. FALL PRECAUTIONS IN PLACE.
--- NOTE | 2019-09-10 19:59 | NUR ---
REASSESSMENT, PAIN AND OTHER QS INTERVENTIONS DOCUMENTED OCCURING AT 0850 BY SOSA PRINGLE ACTUALLY OCCURED AT 0750.
[2019-09-10 21:00] VITALS: BP 132/85
[2019-09-11] VITALS: BP 138/87
[2019-09-11 04:40] LABS: ABSOLUTE LYMPHOCYTES 1.7 thou/uL (0.8-5.3); ABSOLUTE MONOCYTES 1.4 thou/uL (0.0-1.2); ABSOLUTE NEUTROPHILS 9.5 thou/uL (1.6-8.1); BASOPHILS 0.2 %; EOSINOPHILS 0.1 %; HEMATOCRIT 27.7 % (37.0-47.0); HEMOGLOBIN 9.4 gm/dL (12.0-15.0); LYMPHOCYTES 13.6 %; MCH 32.9 pg (26.0-34.0); MCHC 33.9 g/dL (28.0-37.0); MPV 7.4 fl. (7.2-11.1); NUCLEATED RBCS 0 /100WBC; POLYS 75.1 %; RBC 2.86 mil/uL (4.20-5.00); RDW-CV 20.5 % (10.5-14.5); WBC 12.7 thou/uL (4.0-11.0)
[2019-09-11 04:50] LABS: ALBUMIN 2.9 g/dL (3.4-5.0); CALCIUM 9.7 mg/dL (8.5-10.1); CREATININE 0.7 mg/dL (0.6-1.3); TOTAL BILIRUBIN 0.8 mg/dL (<0.1-1.0); TOTAL PROTEIN 8.4 g/dL (6.4-8.2)
[2019-09-11 04:55] LABS: PLATELET COUNT* 581 thou/uL (150-400)
[2019-09-11 04:58] LABS: POTASSIUM 3.9 mmol/L (3.5-5.1)
--- NOTE | 2019-09-11 06:12 | NUR ---
VITALS STABLE RA. MEDS GIVEN ORDERED. PAIN MANAGED WITH NORCO. UP TO BSC WITH MINIMUM ASSIST. WILL CONTINUE TO MONITOR.
[2019-09-11 06:35] LABS: ANISOCYTOSIS 1+; ESR (SEDRATE) 130 mm/hr (0-20); PLATELET ESTIMATE ADEQUATE
[2019-09-11 08:00] VITALS: BP 123/87
[2019-09-11 12:00] VITALS: BP 132/79
[2019-09-11 14:10] VITALS: BP 132/79
--- NOTE | 2019-09-11 14:21 | NUR ---
ASSUMED PT CARE AT 0730. ASSESSMENT COMPLETED CHARTED. ABLE TO MAKE NEEDS KNOWN. UP WITH SBA. RESTING IN BED MOST OF THE MORNING. PT TRANSFERRED TO / AT AROUND 1400 WITH ALL HER BELONGINGS. REPORT CALLED AND BOYFRIEND AT BEDSIDE. WILL CONTINUE TO MONITOR.
--- NOTE | 2019-09-11 15:04 | NUR ---
PT TRANSFERRED TO UNIT. PT ALERT AND ORIENTED. PT GIVEN PAIN MEDS ORDERED. I AGREE WITH MORNING ASSESSMENT. FALL RISK PRECAUTIONS IN PLACE. HOULRY ROUNDING COMPLETED. WILL CONTINUE TO MONITOR,
[2019-09-11 16:00] VITALS: BP 139/85
--- NOTE | 2019-09-11 17:02 | NUR ---
PT REMAINED ALERT AND ORIENTED. PT RESTING IN ROOM. MEDS GIVEN ORDERED. FALL RISK PRECAUTIONS IN PLACE. HOURLY ROUNDING COMPLETED. WILL CONTINUE TO MONITOR.
[2019-09-11 21:50] VITALS: BP 131/91
[2019-09-12 04:31] LABS: CALCIUM 8.9 mg/dL (8.5-10.1); CREATININE 0.6 mg/dL (0.6-1.3); MAGNESIUM 2.2 mg/dL (1.8-2.4); POTASSIUM 3.6 mmol/L (3.5-5.1)
--- NOTE | 2019-09-12 06:12 | NUR ---
MEDS GIVEN ORDERED. PAIN MANAGED WITH NORCO. XANAX GIVEN FOR ANXIETY PER PT REQUEST. WILL CONTINUE TO MONITOR.
[2019-09-12 07:34] VITALS: BP 131/84
[2019-09-12] MEDS ORDERED: POTASSIUM20 PO (08:52)
[2019-09-12 16:00] VITALS: BP 123/82
--- NOTE | 2019-09-12 17:02 | NUR ---
pt remained alert and oriented. pt resting in room. pain meds given as ordered. fall risk precautions in place. hourly rounding completed. will continue to monitor.
[2019-09-12 19:45] VITALS: BP 129/89
--- NOTE | 2019-09-13 05:31 | NUR ---
PT SLEPT FAIRLY WELL OVERNIGHT, RECEIVING PAIN MED AND GABAPENTIN AT HS, XANAX FOR SLEEP. TOPICAL LIDOCAINE APPLIED GENTLY TO FEET FOR NEUROPATHY PAIN WITH GOOD RESULT. MATI TURK. UP SBA TO BSC. POSSIBLE DC TO REHAB FACILITY TODAY. ABLE TO USE CALL LITE AND MAKE NEEDS KNOWN. NO LABS THIS MORNING.
[2019-09-13 07:30] VITALS: BP 124/78
--- NOTE | 2019-09-13 11:38 | NUR ---
SW continuing to follow to assist with dc planning and possible SNF placement. SW faxed OT note to admissions of [facility] and SW received message from Shelbi with [facility] stating that facility sent all updates to pt insurance and auth is still pending. SW to check on status of referral again this afternoon.
[2019-09-13 14:47] LABS: NUCLEATED RBCS 0 /100WBC
[2019-09-13 14:51] LABS: HEMATOCRIT 29.3 % (37.0-47.0); HEMOGLOBIN 9.6 gm/dL (12.0-15.0); MCH 31.3 pg (26.0-34.0); MCHC 32.7 g/dL (28.0-37.0); MCV 95.8 fL (80.0-100.0); PLATELET COUNT* 511 thou/uL (150-400); RBC 3.06 mil/uL (4.20-5.00); RDW-CV 19.4 % (10.5-14.5); WBC 16.6 thou/uL (4.0-11.0)
[2019-09-13 16:06] VITALS: BP 139/93
[2019-09-13 16:32] LABS: ABSOLUTE BASOPHILS 0.2 thou/uL (0.0-0.2); ABSOLUTE LYMPHOCYTES 0.8 thou/uL (0.8-5.3); ABSOLUTE MONOCYTES 0.3 thou/uL (0.0-1.2); ABSOLUTE NEUTROPHILS 15.3 thou/uL (1.6-8.1)
[2019-09-13 16:33] LABS: ANISOCYTOSIS 1+
[2019-09-13 16:34] LABS: CLUMPED PLTS RARE; LARGE PLATELETS OCCASIONAL
[2019-09-13 16:35] LABS: MACROCYTES Occasional; PLATELET ESTIMATE INCREASED
--- NOTE | 2019-09-13 17:57 | NUR ---
PT A&OX4, VSS. PT TACHYCARDIC ON TELE MONITOR. STRIP PRINTED AND PLACED ON CHART. PT UP SBA WITH GAIT BELT. IV TO RAC PATENT/SALINE LOCKED. PT RESTS IN ROOM WITH CALL LIGHT IN REACH. PT ON TELE MONITOR PER DR KESSLER. ORTHO CONSULTED R/T NECROSIS/FX NOTED TO R FEMORAL HEAD. REPORT CALLED TO JUSTIN PRINGLE ON 2 E.
[2019-09-13 18:54] VITALS: BP 132/85
--- NOTE | 2019-09-13 18:55 | NUR ---
RECEIVED REPORT FROM YARY RUIZ AT 1740 OF EXPECTED TRANSFER R/T TACHYCARDIA- PT ARRIVED TO UNIT VIA BED AT 1841- LAND MEASURER PLACED ORDERED, TRACING ST- VS 98.6 20 132/85 129 98% ON RA- PT ORIENTATED TO ROOM AND CALL LIGHT-ALL NEEDS MET-WCTM
[2019-09-14] VITALS: BP 133/93
[2019-09-14 04:00] VITALS: BP 123/86
--- NOTE | 2019-09-14 06:53 | NUR ---
PT SLEPT MOST OF SHIFT. ASSESSMENT DOCUMENTED. MEDS GIVEN PER E-MAR. IV PATENT. PAIN MEDS GIVEN PER E-MAR. PT UP TO BSC AND BR THIS SHIFT. TELE MONITOR IN PLACE. WILL CONTINUE WITH PLAN OF CARE.
[2019-09-14 07:55] VITALS: BP 130/87
--- NOTE | 2019-09-14 08:54 | NUR ---
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
--- NOTE | 2019-09-14 09:48 | EKG ---
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 : 1980 Requested By: Gerard Jolley Order Number: [id number] Dhara MD: Gonzalo Moore Measurements Intervals [place] Rate: 117 P: 44 DE: 138 QRS: 37 QRSD: 74 T: 36 QT: 296 QTc: 413 Interpretive Statements Sinus tachycardia Baseline wander in lead(s) V6 Compared to ECG 09/03/2019 12:54:41 T-wave abnormality no longer seen Electronically Signed On 09-14-2019 9:48:30 CDT by Gonzalo Moore [email or web address] <ELECTRONICALLY SIGNED> By: Gonzalo Moore MD, [facility] 09/14/19 0948 1646 1646 Gonzalo Moore MD, [facility] /EPI
--- NOTE | 2019-09-14 09:49 | EKG ---
[place] [address] ELECTROCARDIOGRAM REPORT Name: DAVID PARIS Room: [address] IN [facility]#: [id number] Admission: 09/03/19 Attend Phys: Tenzin Khan MD Discharge: Date of : 80 Report #: [id number] THIS REPORT FOR: //name// [facility] Test Date: 2019-09-13 Test Time: 16:47:34 Pat Name: DAVID PARIS Department: y Room: Gender: F [employer] Att[employer]: AT : 1980 Requested By: Order Number: [id number] Dhara MD: Gonzalo Moore Measurements Intervals [place] Rate: 119 P: 49 ME: 141 QRS: 31 QRSD: 76 T: 37 QT: 282 QTc: 397 Interpretive Statements Sinus tachycardia ST elev, probable normal early repol pattern Electronically Signed On 09-14-2019 9:48:48 CDT by Gonzalo Moore [email or web address] <ELECTRONICALLY SIGNED> By: Gonzalo Moore MD, [facility]ED WITH [facility] 09/14/19 0948 1647 1647 Gonzalo Moore MD, FACC /EPI
--- NOTE | 2019-09-14 11:23 | 2DMMODE ---
[place] [address] 2 D/M-MODE ECHOCARDIOGRAM Name: DAVID PARIS Room: [address] IN [facility]#: [id number] Admission: 09/03/19 Attend Phys: Tenzin Khan, Discharge: Date of : 80 Date of Service: 09/14/19 1122 Report #: [id number] THIS REPORT FOR: //name// APPROVED REPORT Study performed: 09/14/2019 10:48:48 EXAM: Comprehensive 2D, Doppler, and color-flow Echocardiogram Patient Location: In-Patient Room #: 220 Status: routine BSA: 1.74 HR: 118 bpm BP: 130/87 mmHg Rhythm: NSR Other Information Study Quality: Good Indications Tachycardia 2D Dimensions IVSd: 9.97 (7-11mm) LVOT Diam: 19.22 (18-24mm) LVDd: 41.70 mm PWd: 10.97 (7-11mm) Ascending Ao: 29.84 (22-36mm) LVDs: 24.05 (25-40mm) Aortic Root: 29.38 mm Volumes Left Atrial Volume (Systole) LA ESV Index: 16.00 mL/m2 Aortic Valve AoV Peak Josafat.: 1.31 m/s AO Peak Gr.: 6.84 mmHg LVOT Max P.52 mmHg AO Mean Gr.: 4.02 mmHg LVOT Mean P.65 mmHg LVOT Max V: 0.94 m/s AO V2 VTI: 19.09 cm LVOT Mean V: 0.58 m/s GARRY (VTI): 2.13 cm2 LVOT V1 VTI: 14.00 cm Mitral Valve E/A Ratio: 1.04 MV Decel. Time: 107.74 ms MV E Max Josafat.: 0.72 m/[place] [address] 2 D/M-MODE ECHOCARDIOGRAM Name: DAVID PARIS Room: [address] IN [facility]#: [id number] Admission: 09/03/19 Attend Phys: Tenzin Khan, Discharge: Date of : 80 Date of Service: 09/14/19 1122 Report #: [id number] MV PHT: 31.24 ms MVA (PHT): 7.04 cm2 TDI E/Lateral E': 6.00 E/Medial E': 7.20 Medial E' Josafat.: 0.10 m/s Lateral E' Josafat.: 0.12 m/s Pulmonary Valve PV Peak Josafat.: 0.90 m/s PV Peak Gr.: 3.23 mmHg Left Ventricle The left ventricle is normal size. There is normal LV segmental wall motion. There is normal left ventricular wall thickness. Left ventricular systolic function is normal. The left ventricular ejection fraction is within the normal range. LVEF is 55-60%. The left ventricular diastolic function is normal. Right Ventricle The right ventricle is normal size. The right ventricular systolic function is normal. Atria The left atrium size is normal. The right atrium size is normal. Aortic Valve The aortic valve is normal in structure. No aortic regurgitation is present. There is no aortic valvular stenosis. Mitral Valve The mitral valve is normal in structure. There is no mitral valve regurgitation noted. No evidence of mitral valve stenosis. Tricuspid Valve The tricuspid valve is normal in structure. Unable to assess PA pressure. Trace tricuspid regurgitation. Pulmonic Valve The pulmonary valve is normal in structure. There is no pulmonic valvular regurgitation. Great Vessels The aortic root is normal in size. IVC is normal in size and collapses >50% [place] [address] 2 D/M-MODE ECHOCARDIOGRAM Name: DAVID PARIS Room: [address]#: [id number] Admission: 09/03/19 Attend Phys: Tenzin Khan, Discharge: Date of : 80 Date of Service: 09/14/19 1122 Report #: [id number] Pericardium There is no pericardial effusion. <Conclusion> The left ventricle is normal size. There is normal left ventricular wall thickness. Left ventricular systolic function is normal. The left ventricular ejection fraction is within the normal range. LVEF is 55-60%. The left ventricular diastolic function is normal. IVC is normal in size and collapses >50% with inspiration. <ELECTRONICALLY SIGNED> By: Emerson Ayala MD, FACC 09/14/19 1122 112 112 Emerson Ayala MD, FACC /INF
[2019-09-14 11:30] VITALS: BP 123/85
[2019-09-14] MEDS ORDERED: MELATONIN5 M4 PO (14:36)
[2019-09-14] MEDS ORDERED: CYMBALTA30 MG PO (14:39)
[2019-09-14] MEDS ORDERED: PROMS25 WY PO (14:39)
[2019-09-14] MEDS ORDERED: MILK OF MA2400 MG/11 PO (14:40)
[2019-09-14] MEDS ORDERED: MYLANTA MAXIMU355 ML PO (14:42)
[2019-09-14] MEDS ORDERED: CORRECTOL5 M1 PO (14:43)
[2019-09-14] MEDS ORDERED: ARTIFICIAL TEAR15 M4 OPHTHALMIC (14:44)
[2019-09-14] MEDS ORDERED: ALPRAZOLAM XR3 MG PO (14:45)
[2019-09-14] MEDS ORDERED: AMBIEN5 MG PO (15:21)
--- NOTE | 2019-09-14 15:28 | NUR ---
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 Faxed dc orders. Chart copied. Nurse report number is [id number]. Pt to update family.
[2019-09-14] MEDS ORDERED: GRALISE300 MG PO (15:32)
[2019-09-14 16:06] LABS: RENIN 0.556 ng/mL/hr (0.167-5.380)
[2019-09-15 07:36] LABS: ANA INTERPRETATION Positive (Negative); ANTI-DNA SCREEN 1 IU/mL (0-9)
--- NOTE | 2019-09-15 15:07 | PATH ---
[address] [address] PATHOLOGY RPT PROCEDURE Name: DAVID YAN Room: [address] IN M.R.#: [id number] Admission: 09/03/19 Date of : 80 Discharge: 09/14/19 Report #: [id number] Path Case #: [id number] [facility] Accession Number: [id number] . 01 Material submitted: . stomach - BIOPSY OF PREPYLORIC GASTRIC ULCER FROM HISTOLOGY AND H-PYLORI . 01 Clinical history: . None provided. . 02 Diagnosis: Biopsy of prepyloric gastric ulcer: - Nonspecific mild chronic and severe active antral gastritis with ulceration, negative for Helicobacter pylori organisms, granulomas, viral inclusions and dysplasia. (FARZANA:ann; 09/14/2019) . . Special stain: H. pylori immuno. QMS 09/14/2019 0714 Local . 02 Electronically signed: . Primitivo Eli MD, Pathologist NPI- [id number] . 01 Gross description: . Received in formalin labeled "David Yan, biopsy of prepyloric gastric ulcer for histology and H. pylori" is a 1.4 x 0.6 x 0.2 cm aggregate of luna-brown mucosa fragments. The specimen is submitted in A1. [place] [place] [facility] 09/12/2019 1221 Local . 02 Pathologist provided ICD-10: K29.50, K52.9 . 02 CPT . 115550, J94338 Specimen Comment: A courtesy copy of this report has been sent to [phone] Specimen Comment: [phone], Specimen Comment: Report sent to ,DR THOMPSON / DR NEVES Specimen Comment: A duplicate report has been generated due to demographic updates. Performed at: [address] [id number] MD Audi Yeh MD Phone: [phone] Performed at: 02 [place] [address] PATHOLOGY RPT PROCEDURE Name: DAVID YAN Paulino Room: [address] M.R.#: [id number] Admission: 09/03/19 Date of : 80 Discharge: 09/14/19 Report #: [id number] Path Case #: [id number] [facility] [address] TEODORO Villanueva [id number] MD Primitivo Eli MD Phone: [phone]
== END 2019-09-14 16:30 | DRG 871 ==
LOC: M.ERS 12:43 → M.ICU 17:46 → M.2W 17:46 → M.ICU 17:46 → M.2W 17:46 → M.TBA-ER 17:46 → M.ICU 19:26 → M.2W 09-05 18:07 → M.3W 09-11 13:54 → M.2W 09-13 18:41
PROVIDERS: Family Medicine; Internal Medicine; Internal Medicine Gastroenterology; Personal Emergency Response Attendant; Psychiatry & Neurology Behavioral Neurology & Neuropsychiatry; ADMIT Internal Medicine
PROC: 30233N1 Transfusion of Nonautologous Red Blood Cells into Peripheral Vein, Percutaneous Approach (ICD-10-PCS; principal; 2019-09-03)
PROC: 0DB78ZX Excision of Stomach, Pylorus, Via Natural or Artificial Opening Endoscopic, Diagnostic (ICD-10-PCS; 2019-09-10)
DX: A41.9 Sepsis, unspecified organism (principal); K85.90 Acute pancreatitis without necrosis or infection, unspecified; K29.71 Gastritis, unspecified, with bleeding; K25.4 Chronic or unspecified gastric ulcer with hemorrhage; M84.451A Pathological fracture, right femur, initial encounter for fracture; M87.059 Idiopathic aseptic necrosis of unspecified femur; D62 Acute posthemorrhagic anemia; D59.1 Other autoimmune hemolytic anemias; G61.0 Guillain-Barre syndrome; G62.9 Polyneuropathy, unspecified; E87.6 Hypokalemia; K75.9 Inflammatory liver disease, unspecified; E86.9 Volume depletion, unspecified; E83.42 Hypomagnesemia; E83.39 Other disorders of phosphorus metabolism; E83.111 Hemochromatosis due to repeated red blood cell transfusions; N30.90 Cystitis, unspecified without hematuria; B96.1 Klebsiella pneumoniae [K. pneumoniae] as the cause of diseases classified elsewhere; F32.9 Major depressive disorder, single episode, unspecified; F41.9 Anxiety disorder, unspecified; Z86.73 Personal history of transient ischemic attack (TIA), and cerebral infarction without residual deficits; Z88.8 Allergy status to other drugs, medicaments and biological substances; Z79.899 Other long term (current) drug therapy